=== PATIENT | female | born 1995 | race Hispanic/Latino ===

== ENCOUNTER 2018-01-19 13:19 | Emergency (ER) | payer OTHER ==
--- NOTE | 2018-01-19 15:31 | RAD REPORT ---
EXAM DESCRIPTION: CT - Head Brain Wo Cont - 01/19/2018 3:24 pm CLINICAL HISTORY: Headache COMPARISON: 2011 TECHNIQUE: Computed axial tomography of the head was obtained. IV contrast was not requested. All CT scans are performed using dose optimization technique as appropriate and may include automated exposure control or mA/KV adjustment according to patient size. FINDINGS: An intracranial bleed is not seen . The ventricles are normal in caliber. No extra-axial fluid collection is noted. Fluid within the sinuses/ mastoids is not seen. IMPRESSION: No acute intracranial abnormality is seen. If patient's symptoms persist MRI of the bra in would be recommended.
--- NOTE | 2018-01-19 15:43 | EDPHYS ---
Physician Documentation [facility] Name: Marta Montejo Age: 22 yrs Sex: Female : 1995 Arrival Date: 01/19/2018 Time: 13:21 Bed 24 Private MD: None, None ED Physician Kobi Frazier HPI: 01/19 15:39 This 22 yrs old Female presents to ER via Ambulatory with complaints of gs Headache. 15:39 The patient complains of pain to the right anglican. The patient describes the headache gs as throbbing. Onset: The symptoms/episode began/occurred 2 year(s) ago. Associated signs and symptoms: Pertinent negatives: altered mental status, paresthesias, weakness. Severity of symptoms: At its worst the pain was moderate, in the emergency department the pain has resolved, 1 day(s) prior to arrival. Headache History: The patient has had previous headaches and this one is similar to previous episodes. The symptoms are alleviated by nothing. the symptoms are aggravated by nothing. The patient has experienced similar episodes in the past, chronically. The patient has been recently seen by a physician: the patient's primary care provider, got referral to neurologist. 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 - Social history:: Smoking status: Patient/guardian denies using tobacco. - Ebola Screening: : No symptoms or risks identified at this time. ROS: 15:39 All other systems are negative. gs Exam: 15:39 Head/Face: Normocephalic, atraumatic. Eyes: Pupils equal round and reactive to light, gs extra-ocular motions intact. Lids and lashes normal. Conjunctiva and sclera are non-icteric and not injected. Cornea within normal limits. Periorbital areas with no swelling, redness, or edema. ENT: Nares patent. No nasal discharge, no septal abnormalities noted. Tympanic membranes are normal and external auditory canals are clear. Oropharynx with no redness, swelling, or masses, exudates, or evidence of obstruction, uvula midline. Mucous membranes moist. Neck: Trachea midline, no thyromegaly or masses palpated, and no cervical lymphadenopathy. Supple, full range of motion without nuchal rigidity, or vertebral point tenderness. No Meningismus. Chest/axilla: Normal chest wall appearance and motion. Nontender with no deformity. No lesions are appreciated. Cardiovascular: Regular rate and rhythm with a normal S1 and S2. No gallops, murmurs, or rubs. Normal PMI, no JVD. No pulse deficits. Respiratory: Lungs have equal breath sounds bilaterally, clear to auscultation and percussion. No rales, rhonchi or wheezes noted. No increased work of breathing, no retractions or nasal flaring. Abdomen/GI: Soft, non-tender, with normal bowel sounds. No distension or tympany. No guarding or rebound. No evidence of tenderness throughout. Back: No spinal tenderness. No costovertebral tenderness. Full range of motion. Skin: Warm, dry with normal turgor. Normal color with no rashes, no lesions, and no evidence of cellulitis. MS/ Extremity: Pulses equal, no cyanosis. Neurovascular intact. Full, normal range of motion. Neuro: Awake and alert, GCS 15, oriented to person, place, time, and situation. Cranial nerves II-XII grossly intact. Motor strength 5/5 in all extremities. Sensory grossly intact. Cerebellar exam normal. Normal gait. 15:39 Constitutional: The patient appears alert, awake. Vital Signs: 14:03 BP 119 / 58; Pulse 105; Resp 18 S; Temp 98.7(O); Pulse Ox 99% on R/A; Weight 72.57 kg aa5 (R); Height 5 ft. 3 in. (160.02 cm) (R); Pain 0/10; 14:03 Body Mass Index 28.34 (72.57 kg, 160.02 cm) aa5 MDM: 15:06 Patient medically screened. 15:13 Data reviewed: vital signs, nurses notes. Special discussion: pt request CT head gs despite discussions of chronicity of headache for 2 years. 15:39 Differential diagnosis: migraine, tension headache, vasomotor headache. 01/19 15:13 Order name: CT Head Brain wo Cont; Complete Time: 15:39 gs Administered Medications: No medications were administered Disposition: 01/19/18 15:43 Discharged to Home. Impression: Headache. - Condition is Stable. - Discharge Instructions: General Headache Without Cause. - Medication Reconciliation Form, Thank You Letter, Antibiotic Education, Prescription Opioid Use form. - Follow up: Ang Diggs MD; When: 2 - 3 days; Reason: Re-evaluation by your physician. Signatures: Dispatcher [employer] EDAlejandra Linda RN RN aa5 Annie Nye RN RN ss Kobi Frazier MD MD gs Corrections: (The following items were deleted from the chart) 16:02 15:43 01/19/2018 15:43 Discharged to Home. Impression: Headache. Condition is Stable. ss Forms are Medication Reconciliation Form, Thank You Letter, Antibiotic Education, Prescription Opioid Use. Follow up: Ang Diggs; When: 2 - 3 days; Reason: Re-evaluation by your physician. gs
--- NOTE | 2018-01-19 15:43 | ER ---
Nurse's Notes [facility] Name: Marta Montejo Age: 22 yrs Sex: Female : 1995 Arrival Date: 01/19/2018 Time: 13:21 Bed 24 Private MD: None, None Diagnosis: Headache Presentation: 01/19 14:00 Presenting complaint: Patient states: intemittent headache to right side of head x 2 aa5 years ago. Pt states "every time I get the pain my right arm tenses up and the right side of my face too". pt denies numbness or tingling. Pt states "I have an appointment with the neurologist but not until the end of January". Transition of care: patient was not received from another setting of care. Onset of symptoms was 2015. Risk Assessment: Do you want to hurt yourself or someone else? Patient reports no desire to harm self or others. Initial Sepsis Screen: Does the patient meet any 2 criteria? No. Patient's initial sepsis screen is negative. Does the patient have a suspected source of infection? No. Patient's initial sepsis screen is negative. Care prior to arrival: None. 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 - Social history:: Smoking status: Patient/guardian denies using tobacco. - Ebola Screening: : No symptoms or risks identified at this time. Screenin:45 Abuse screen: Denies threats or abuse. Denies injuries from another. Nutritional ss screening: No deficits noted. Tuberculosis screening: Never had TB. Fall Risk None identified. Assessment: 14:45 General: Appears in no apparent distress. comfortable, Behavior is calm, cooperative, ss Denies fever, feeling ill, fatigue, chills. Neuro: Level of Consciousness is awake, alert, obeys commands, Oriented to person, place, time, situation. Cardiovascular: Capillary refill < 3 seconds is brisk in bilateral fingers. Respiratory: Airway is patent Respiratory effort is even, unlabored, Respiratory pattern is regular, symmetrical. EENT: Nares are clear Oral mucosa is moist. Throat is clear. Derm: Skin is intact, is healthy with good turgor, Skin is pink, warm \\T\\ dry. normal. Musculoskeletal: Circulation, motion, and sensation intact. Range of motion: intact in all extremities, Swelling absent. 15:08 General: PT c/o episodic pain to R sided of head that began 2 years ago. For the first ss year, pain was described as pressure, and over the past year the pain is now sharp, 8/10. Pt currently denies pain at this time. . Vital Signs: 14:03 BP 119 / 58; Pulse 105; Resp 18 S; Temp 98.7(O); Pulse Ox 99% on R/A; Weight 72.57 kg aa5 (R); Height 5 ft. 3 in. (160.02 cm) (R); Pain 0/10; 14:03 Body Mass Index 28.34 (72.57 kg, 160.02 cm) aa5 ED Course: 13:21 Patient arrived in ED. mr 13:21 None, None is Private Physician. mr 14:00 Arm band placed on. aa5 14:03 Triage completed. aa 14:20 Kobi Frazier MD is Attending Physician. 14:41 Annie Nye, JOSEPH is Primary Nurse. ss 14:45 Patient has correct armband on for positive identification. Bed in low position. Call ss light in reach. 15:[address] [id number] 15:23 CT completed. Patient tolerated procedure well. Patient moved back from [place]. nj 15:24 CT Head Brain wo Cont In Process Unspecified. EDGA 15:41 nAg Diggs MD is Referral Physician. 16:02 No provider procedures requiring assistance completed. Patient did not have IV access ss during this emergency room visit. Administered Medications: No medications were administered Outcome: 15:43 Discharge ordered by . 16:02 Discharged to home ambulatory, with friend. ss 16:02 Condition: good 16:02 Discharge instructions given to patient, friend, Instructed on discharge instructions, follow up and referral plans. medication usage, Demonstrated understanding of instructions, follow-up care, medications. 16:02 Patient left the ED. ss Signatures: Dispatcher [employer] ELLEGA Rebekah Boateng mr Blackon, Alejandra, RN RN aa5 Annie Nye RN RN ss Angel Kaminski Gregory, MD MD Twyla Flores
[2018-01-19 16:53] VITALS: BP 119/58; TEMP 98.7; O2SAT 99
== END 2018-01-19 16:02 | disposition home or self-care (01) ==
LOC: ER 13:19
DX: R51 Headache (principal)
CPT/HCPCS: 70450; 99284

== ENCOUNTER 2019-02-08 20:09 | Emergency (ER) | payer OTHER, SELFPAY ==
[2019-02-08 21:15] LABS: Absolute Lymphocytes (CBC) 1.9 K/uL (0.7-4.9); Basophils % 0.2 % (0-1.3); Hematocrit 37.9 % (36.0-45.0); Lymphocytes % 21.1 % (15.3-44.8); MPV 8.8 fL (7.6-11.3); RBC Red Blood Cell Count 4.68 M/uL (3.86-4.86)
[2019-02-08 21:28] LABS: Urine Blood NEGATIVE (NEG); Urine Glucose NEGATIVE (NEG); Urine Protein NEGATIVE (NEG); Urine pH 8.5 (5.0-7.0)
[2019-02-08 21:29] LABS: ALT/SGPT 21 U/L (12-78); AST/SGOT 16 U/L (15-37); Albumin 3.6 g/dL (3.4-5.0); Alkaline Phosphatase 63 U/L (45-117); BUN Blood Urea Nitrogen 15 mg/dL (7-18); Bicarbonate 28 mmol/L (21-32); Bilirubin Direct 0.1 mg/dL (0-0.2); Bilirubin Total 0.3 mg/dL (0.2-1.0); Glucose Level 84 mg/dL (74-106); Lipase 87 U/L (73-393); Potassium 3.7 mmol/L (3.5-5.1); Protein, Total 7.1 g/dL (6.4-8.2); Sodium Level 142 mmol/L (136-145)
[2019-02-08] MEDS ORDERED: MAGNE/ALUM HYDROXD 30 ML UCUP ONE ×2 (21:38→21:42)
[2019-02-08] MEDS ORDERED: LIDOCAINE VISCOUS 2% SOLN 15 ML UDC ONE ×2 (21:38→21:42)
[2019-02-08] MEDS ORDERED: KETOROLAC 30 MG/ML INJ ONE (22:33)
--- NOTE | 2019-02-08 22:45 | ER ---
Nurse's Notes [facility] Name: Marta Montejo Age: 23 yrs Sex: Female : 1995 Arrival Date: 02/08/2019 Time: 20:23 Bed 18 Private MD: Diagnosis: Gastritis, unspecified, without bleeding Presentation: 02/08 20:24 Presenting complaint: Patient states: I have had abdominal pain and distention since tl1 Friday and have not been able to eat. I had diarrhea Friday and Friday but that has resolved. Transition of care: patient was not received from another setting of care. Onset of symptoms was February 05, 2019. Risk Assessment: Do you want to hurt yourself or someone else? Patient reports no desire to harm self or others. Initial Sepsis Screen: Does the patient meet any 2 criteria? No. Patient's initial sepsis screen is negative. Does the patient have a suspected source of infection? No. Patient's initial sepsis screen is negative. Care prior to arrival: None. 20:24 Method Of Arrival: Ambulatory tl1 20:24 Acuity: ANTONY 3 tl1 Triage Assessment: 20:35 General: Behavior is calm, cooperative, appropriate for age. 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 - Social history:: Smoking status: Patient/guardian denies using tobacco, never smoked, Patient/guardian denies using alcohol, street drugs. - Ebola Screening: : Patient negative for fever greater than or equal to 101.5 degrees Fahrenheit, and additional compatible Ebola Virus Disease symptoms Patient denies exposure to infectious person Patient denies travel to an Ebola-affected area in the 21 days before illness onset. Screenin:30 Abuse screen: Denies threats or abuse. Denies injuries from another. Nutritional screening: No deficits noted. Tuberculosis screening: No symptoms or risk factors identified. Fall Risk None identified. Assessment: 20:40 General: Appears in no apparent distress. Pain: Complains of pain in epigastric area wh Pain radiates to left mid back Pain currently is 7 out of 10 on a pain scale. Quality of pain is described as stinging, Pain began 2-3 days ago. Neuro: Level of Consciousness is awake, alert, obeys commands, Oriented to person, place, time, situation, Appropriate for age. Cardiovascular: Heart tones S1 S2. Respiratory: Airway is patent Respiratory effort is even, unlabored, Respiratory pattern is regular, symmetrical, Breath sounds are clear bilaterally. GI: Abdomen is flat, non-distended, Bowel sounds present X 4 quads. Abd is soft and non tender X 4 quads. : No signs and/or symptoms were reported regarding the genitourinary system. EENT: No signs and/or symptoms were reported regarding the EENT system. Derm: Skin is intact, is healthy with good turgor, Skin is pink, warm \T\ dry. normal. Musculoskeletal: Circulation, motion, and sensation intact. 21:29 Reassessment: Patient appears in no apparent distress at this time. No changes from previously documented assessment. Patient and/or family updated on plan of care and expected duration. Pain level reassessed. Patient is alert, oriented x 3, equal unlabored respirations, skin warm/dry/pink. 22:13 Reassessment: Patient appears in no apparent distress at this time. No changes from previously documented assessment. Patient and/or family updated on plan of care and expected duration. Pain level reassessed. Patient is alert, oriented x 3, equal unlabored respirations, skin warm/dry/pink. Vital Signs: 20:26 BP 127 / 81; Pulse 89; Resp 17; Temp 98.3; Pulse Ox 99% ; Weight 74.84 kg; Height 5 ft. tl1 3 in. (160.02 cm); Pain 7/10; 22:13 BP 115 / 78; Pulse 79; Resp 18; Pulse Ox 99% on R/A; wh 20:26 Body Mass Index 29.23 (74.84 kg, 160.02 cm) tl1 ED Course: 20:23 Patient arrived in ED. tl1 20:25 Triage completed. tl1 20:27 Abdiel Rubin is Primary Nurse. wh 20:27 Arm band placed on right wrist. tl1 20:30 Patient has correct armband on for positive identification. Placed in gown. Bed in low wh position. Call light in reach. Side rails up X 1. Pulse ox on. NIBP on. 20:38 Destin Melo MD is Attending Physician. tw4 20:45 Inserted saline lock: 22 gauge in right antecubital area, using aseptic technique. Blood collected. 22:55 No provider procedures requiring assistance completed. 22:55 IV discontinued, intact, bleeding controlled, No redness/swelling at site. Administered Medications: 21:43 Drug: GI Cocktail without - (Maalox Suspension 30 ml, Lidocaine Liquid 2 % 15 wh ml) Route: PO; :54 Follow up: Response: No adverse reaction 22:45 Drug: TORadol - Ketorolac 15 mg Route: IVP; Site: right antecubital; :54 Follow up: Response: No adverse reaction; Pain is decreased Outcome: :45 Discharge ordered by . tw4 22:55 Discharged to home ambulatory, with family. 22:55 Condition: stable 22:55 Discharge instructions given to patient, Instructed on discharge instructions, follow up and referral plans. medication usage, POC Gastritis Demonstrated understanding of instructions, follow-up care, medications, POC Prescriptions given X 2. 22:59 Patient left the ED. Signatures: Ashley Cottrell, RN RN tl1 Abdiel Rubin Destin Melo MD MD tw4 Corrections: (The following items were deleted from the chart) 22:55 22:55 Patient did not have IV access during this emergency room visit. [facility]
--- NOTE | 2019-02-08 22:46 | EDPHYS ---
Physician Documentation [facility] Name: Marta Montejo Age: 23 yrs Sex: Female : 1995 Arrival Date: 02/08/2019 Time: 20:23 Bed 18 Private MD: ED Physician Destin Melo HPI: 02/09 00:22 This 23 yrs old Female presents to ER via Ambulatory with complaints of tw4 Abdominal Pain. 00:22 The patient presents with abdominal pain. Onset: The symptoms/episode began/occurred tw4 today. The symptoms do not radiate. Associated signs and symptoms: none. The symptoms are described as dull. Modifying factors: The symptoms are alleviated by nothing, the symptoms are aggravated by nothing. Severity of pain: At its worst the pain was moderate in the emergency department the pain. 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 - Social history:: Smoking status: Patient/guardian denies using tobacco, never smoked, Patient/guardian denies using alcohol, street drugs. - Ebola Screening: : Patient negative for fever greater than or equal to 101.5 degrees Fahrenheit, and additional compatible Ebola Virus Disease symptoms Patient denies exposure to infectious person Patient denies travel to an Ebola-affected area in the 21 days before illness onset. ROS: 02/09 00:22 Constitutional: Negative for fever, chills, and weight loss, Eyes: Negative for injury, tw4 pain, redness, and discharge, Cardiovascular: Negative for chest pain, palpitations, and edema, Respiratory: Negative for shortness of breath, cough, wheezing, and pleuritic chest pain, Back: Negative for injury and pain, MS/Extremity: Negative for injury and deformity, Skin: Negative for injury, rash, and discoloration, Neuro: Negative for headache, weakness, numbness, tingling, and seizure. Abdomen/GI: Positive for abdominal pain. Exam: 00:22 Constitutional: This is a well developed, well nourished patient who is awake, alert, tw4 and in no acute distress. Head/Face: Normocephalic, atraumatic. Chest/axilla: Normal chest wall appearance and motion. Nontender with no deformity. No lesions are appreciated. Cardiovascular: Regular rate and rhythm with a normal S1 and S2. No gallops, murmurs, or rubs. Normal PMI, no JVD. No pulse deficits. Respiratory: Lungs have equal breath sounds bilaterally, clear to auscultation and percussion. No rales, rhonchi or wheezes noted. No increased work of breathing, no retractions or nasal flaring. Back: No spinal tenderness. No costovertebral tenderness. Full range of motion. Skin: Warm, dry with normal turgor. Normal color with no rashes, no lesions, and no evidence of cellulitis. MS/ Extremity: Pulses equal, no cyanosis. Neurovascular intact. Full, normal range of motion. 00:22 Abdomen/GI: Inspection: abdomen appears normal, Bowel sounds: normal, Palpation: moderate abdominal tenderness, in the epigastric area. Vital Signs: 02/08 20:26 BP 127 / 81; Pulse 89; Resp 17; Temp 98.3; Pulse Ox 99% ; Weight 74.84 kg; Height 5 ft. tl1 3 in. (160.02 cm); Pain 7/10; 22:13 BP 115 / 78; Pulse 79; Resp 18; Pulse Ox 99% on R/A; wh 20:26 Body Mass Index 29.23 (74.84 kg, 160.02 cm) tl1 MDM: 20:42 Patient medically screened. tw4 02/09 00:27 Differential diagnosis: acute coronary syndrome, appendicitis. Data reviewed: vital tw4 signs, nurses notes. Data interpreted: Pulse oximetry: Interpretation: normal. Counseling: I had a detailed discussion with the patient and/or guardian regarding: the historical points, exam findings, and any diagnostic results supporting the discharge/admit diagnosis. Medication response: morphine partially relieved the patient's pain. Response to treatment: the patient's symptoms have markedly improved after treatment, and as a result, I will discharge patient. Special discussion: Based on the patient's Hx, exam, and Dx evaluation, there is no indication for emergent surgery or inpatient Tx. It is understood by the patient/guardian that if the Sx's persist or worsen they need to return immediately for re-evaluation. I discussed with the patient/guardian in detail that at this point there is no indication for admission to the hospital. It is understood, however, that if the symptoms persist or worsen the patient needs to return immediately for re-evaluation. 02/08 20:41 Order name: Basic Metabolic Panel; Complete Time: 22:40 [facility] 02/08 22:41 Interpretation: Normal except: CA 8.1. [facility] 02/08 20:41 Order name: CBC with Diff; Complete Time: 22:40 [facility] 02/08 22:42 Interpretation: Within normal limits. [facility] 02/08 20:41 Order name: Creatinine for Radiology; Complete Time: 22:40 [facility] 02/08 22:42 Interpretation: Within normal limits: CRE 0.76. [facility] 02/08 20:41 Order name: Hepatic Function; Complete Time: 22:40 [facility] 02/08 22:41 Interpretation: Normal except: A/G 1.0. [facility] 02/08 20:41 Order name: Lipase; Complete Time: 22:40 [facility] 02/08 21:01 Order name: Urine Dipstick--Ancillary (enter results); Complete Time: 22:40 mt 02/08 22:41 Interpretation: Normal except: UPH 8.5. [facility] 02/08 20:41 Order name: IV Saline Lock; Complete Time: 20:49 [facility] 02/08 20:41 Order name: Labs collected and sent; Complete Time: 20:50 [facility] 02/08 20:41 Order name: Urine Dipstick-Ancillary (obtain specimen); Complete Time: 21:00 [facility] 02/08 20:41 Order name: Urine Test (obtain specimen); Complete Time: 21:00 [facility] 02/08 21:02 Order name: Urine --Ancillary (enter results); Complete Time: 22:40 mt Administered Medications: 02/08 21:43 Drug: GI Cocktail without - (Maalox Suspension 30 ml, Lidocaine Liquid 2 % 15 wh ml) Route: PO; 22:54 Follow up: Response: No adverse reaction 22:45 Drug: TORadol - Ketorolac 15 mg Route: IVP; Site: right antecubital; 22:54 Follow up: Response: No adverse reaction; Pain is decreased Disposition: 02/08/19 22:45 Discharged to Home. Impression: Gastritis, unspecified, without bleeding. - Condition is Stable. - Discharge Instructions: Gastritis, Adult. - Prescriptions for Protonix 40 mg Oral Tablet - take 1 tablet by ORAL route once daily; 30 tablet. Zofran 4 mg Oral Tablet - take 1 tablet by ORAL route every 12 hours As needed; 6 tablet. - Medication Reconciliation Form, Thank You Letter, Antibiotic Education, Prescription Opioid Use form. - Follow up: Private Physician; When: Upon discharge from the Emergency Department; Reason: Recheck today's complaints, Continuance of care. - Problem is new. - Symptoms have improved. Signatures: Dispatcher [employer] EDMS Ashley Cottrell RN RN tl1 Abdiel Rubin Terrence, MD MD tw4 Corrections: (The following items were deleted from the chart) 22:59 22:45 02/08/2019 22:45 Discharged to Home. Impression: Gastritis, unspecified, without wh bleeding. Condition is Stable. Forms are Medication Reconciliation Form, Thank You Letter, Antibiotic Education, Prescription Opioid Use. Follow up: Private Physician; When: Upon discharge from the Emergency Department; Reason: Recheck today's complaints, Continuance of care. Problem is new. Symptoms have improved. tw4
[2019-02-08 23:22] VITALS: TEMP 98.3; O2SAT 99
[2019-02-08 23:23] VITALS: BP 115/78
== END 2019-02-08 22:59 | disposition home or self-care (01) ==
LOC: ER 20:09
DX: K29.70 Gastritis, unspecified, without bleeding (principal)
CPT/HCPCS: 36415; 80048; 80076; 81003; 81025; 83690; 85025; 96374; 99284